=== PATIENT | male | born 1955 | race Caucasian/White ===

== ENCOUNTER → 2017-10-20 | Outpatient (CLI) | payer SELFPAY ==
[~2017-10-20] MED LIST: DEPO-TESTOS100 MG/ML IM; FISH OIL 1000MG1 CAP PO; MINOCYCLIN100 MG/CAP PO; MULTI VITAMINS1 TAB PO; NIASPAN 500MG500 MG PO; NORCO 325 MG-51 TAB PO; WELLBUTRIN SR200 MG; XANAX 1MG1 MG; XANAX 1MG1 MG PO; XANAX2 MG PO
[2017-10-20 12:11] LABS: HEMATOCRIT 51.2 % (42.0-52.0); HEMOGLOBIN 17.7 g/dl (13.5-18.0); MEAN CELL VOLUME 88 fl (80.0-100.0); MEAN CORPUSCULAR HEMOGLOBIN 31 pg (27.0-31.0); MEAN CORPUSCULAR HGB CONC 35 g/dl (33.0-37.0); MEAN PLATELET VOLUME 9.5 fl (7.4-10.4); PLATELET COUNT 152 K/mm3 (130-400); RED BLOOD COUNT 5.79 M/mm3 (4.20-5.60); REDCELL DISTRIBUTION WIDTH-CV 12.9 % (11.5-14.5)
[2017-10-20 12:21] LABS: ALBUMIN 4.2 gm/dL (3.5-5.0); BILIRUBIN,TOTAL 0.7 mg/dL (0.0-1.0); CALCIUM 9.2 mg/dL (8.4-10.2); CHOLESTEROL RISK RATIO 6.6; CREATININE, serum 1.1 mg/dL (0.66-1.25); POTASSIUM 3.9 mmol/L (3.4-5.0); TOTAL PROTEIN 7.1 gm/dL (6.4-8.2)
[2017-10-20 13:35] LABS: COLLECTION METHOD CLEAN CATCH
[2017-10-20 13:42] LABS: MUCOUS Present /lpf; PH 6 (5-8); SQUAMOUS EPITHELIAL None Seen /hpf; URINE APPEARANCE Clear; URINE BACTERIA None Seen /hpf; URINE BILIRUBIN Negative (NEGATIVE); URINE BLOOD Negative (NEGATIVE); URINE COLOR Yellow; URINE GLUCOSE Negative (NEGATIVE); URINE KETONE Negative (NEGATIVE); URINE LEUKOCYTE ESTERASE Negative (NEGATIVE); URINE NITRATE Negative (NEGATIVE); URINE PROTEIN(semi-quant) Negative (NEGATIVE); URINE RBC 0-2 /hpf; URINE UROBILINOGEN Negative (NEGATIVE); URINE WBC 0-2 /hpf
[2017-10-20 13:52] LABS: PSA-TOTAL 0.85 ng/mL (0-4)
== END ==
LOC: COL.LAB 11:32
DX: E23.0 Hypopituitarism (principal); E78.5 Hyperlipidemia, unspecified
CPT/HCPCS: G0103

== ENCOUNTER → 2018-03-02 | Outpatient (CLI) | payer SELFPAY ==
[2018-03-02 12:16] LABS: CHOLESTEROL RISK RATIO 5.1
[2018-03-02 12:56] LABS: PSA-TOTAL 1.07 ng/mL (0-4)
== END ==
LOC: COL.LAB 11:33
PROVIDERS: Pediatrics Adolescent Medicine
DX: E78.5 Hyperlipidemia, unspecified (principal)
CPT/HCPCS: G0103

== ENCOUNTER → 2019-05-06 | Outpatient (CLI) | payer SELFPAY ==
[2019-05-06 14:54] LABS: ALANINE AMINOTRANSFERASE 25 U/L (21-72); ALBUMIN 3.9 gm/dL (3.5-5.0); ALKALINE PHOSPHATASE 72 U/L (50-136); ANION GAP 6 mmol/L (7-16); AST,SGOT 28 U/L (15-37); BILIRUBIN,TOTAL 0.3 mg/dL (0.0-1.0); BLOOD UREA NITROGEN 10 mg/dL (9-20); CALCIUM 9.2 mg/dL (8.4-10.2); CARBON DIOXIDE 30 mmol/L (22-30); CHLORIDE 104 mmol/L (98-107); CHOLESTEROL 200 mg/dL (120-200); CHOLESTEROL RISK RATIO 7.6; CREATININE, serum 0.99 (0.66-1.25); GLUCOSE 94 mg/dL (74-106); POTASSIUM 4.2 mmol/L (3.4-5.0); SODIUM 140 mmol/L (137-145); TOTAL PROTEIN 6.7 gm/dL (6.4-8.2)
[2019-05-06 15:39] LABS: TRIGLYCERIDE 727 mg/dL
[2019-05-06 16:20] LABS: PSA-TOTAL 1.09 ng/mL (0-4)
== END ==
LOC: COL.LAB 14:17
DX: E78.1 Pure hyperglyceridemia (principal); I10 Essential (primary) hypertension; N40.0 Benign prostatic hyperplasia without lower urinary tract symptoms
CPT/HCPCS: G0103

== ENCOUNTER 2021-02-20 19:32 | Emergency (ER) | payer SELFPAY ==
[~2021-02-20] VITALS: Ht 185.4 cm; Wt 93.2 kg
[2021-02-20 19:48] VITALS: TEMP 98.3
[2021-02-20] MEDS ORDERED: BACTRIM DS 8001 TAB PO (21:22)
[2021-02-20 21:39] VITALS: BP 130/81; PULSE 81
== END 2021-02-20 21:46 | disposition home or self-care (01) ==
LOC: COL.ER 19:32
DX: L02.212 Cutaneous abscess of back [any part, except buttock and flank] (principal)

== ENCOUNTER 2021-07-02 04:28 | Emergency (ER) | payer SELFPAY ==
[~2021-07-02] VITALS: Ht 185.4 cm; Wt 100.0 kg
[~2021-07-02 04:28] MED LIST changes: +BACTRIM DS 8001 TAB PO
[2021-07-02 04:36] VITALS: TEMP 98
[2021-07-02 05:14] VITALS: BP 144/90; PULSE 80
== END 2021-07-02 05:14 | disposition home or self-care (01) ==
LOC: COL.ER 04:28
DX: F41.9 Anxiety disorder, unspecified (principal); Z79.899 Other long term (current) drug therapy

== ENCOUNTER 2022-03-06 12:20 | Emergency (ER) | payer SELFPAY ==
[~2022-03-06] VITALS: Ht 185.4 cm; Wt 86.4 kg
[2022-03-06 12:35] VITALS: TEMP 97.9
[2022-03-06] MEDS ORDERED: CEPHALEXIN500 M1 PO (12:57)
[2022-03-06 13:12] VITALS: BP 112/73; PULSE 82
== END 2022-03-06 13:13 | disposition home or self-care (01) ==
LOC: COL.ER 12:20
DX: L03.012 Cellulitis of left finger (principal)